=== PATIENT | male | born 1940 | race Caucasian/White ===

== ENCOUNTER 2023-07-28 17:20 | Emergency (ER) | payer MEDICARE, OTHER ==
[2023-07-28 18:10] LABS: BASOPHILS % (AUTO) 0.2 %; EOSINOPHILS % (AUTO) 0.2 %; HCT - HEMATOCRIT 43.4 % (42.0-52.0); HGB - HEMOGLOBIN 14.1 g/dL (14.0-18.0); LYMPHOCYTES # (AUTO) 1.7 10^3/uL (1.5-3.5); LYMPHOCYTES % (AUTO) 10.5 %; MEAN CORPUSCULAR HEMOGLOBIN 30.6 pg (27.0-31.0); MEAN CORPUSCULAR HGB CONC 32.5 g/dL (32.0-36.0); MEAN CORPUSCULAR VOLUME 94.1 fL (80.0-94.0); MEAN PLATELET VOLUME 10.2 fL (7.4-11.4); MONOCYTES # (AUTO) 1.5 10^3/uL (0.0-1.0); NEUTROPHILS # (AUTO) 12.8 10^3/uL (1.5-6.6); NEUTROPHILS % (AUTO) 79.4 %; PLT - PLATELET COUNT 392 10^3/uL (130-450); RED BLOOD COUNT 4.61 10^6/uL (4.70-6.10); RED CELL DISTRIBUTION WIDTH 13.5 % (12.0-15.0); WHITE BLOOD COUNT 16.2 x10^3/uL (4.8-10.8)
[2023-07-28] MEDS: IPRATROPIUM/ALBUTEROL 3 ML NEB INH STA (18:25)
[2023-07-28 18:26] LABS: ALBUMIN 3.2 g/dL (3.2-5.5); ALBUMIN/GLOBULIN RATIO 0.8 (1.0-2.2); BILIRUBIN,TOTAL 1.1 mg/dL (0.2-1.0); CALCIUM 9.7 mg/dL (8.5-10.3); CREATININE 1.1 mg/dL (0.6-1.3); POTASSIUM 4.3 mmol/L (3.5-4.5); TOTAL PROTEIN 7.4 g/dL (6.4-8.9)
--- NOTE | 2023-07-28 18:30 | XRAY Report ---
PROCEDURE: Chest 1V INDICATIONS: cough TECHNIQUE: One view of the chest was acquired. COMPARISON: None. FINDINGS: Surgical changes and devices: None. Lungs and pleura: No pleural effusions or pneumothorax. Hazy opacity in the right mid and upper lung . Mediastinum: Mediastinal contours appear normal. Heart size is normal. Bones and chest wall: No suspicious bony lesions. Overlying soft tissues appear unremarkable. IMPRESSION: Hazy opacity in the right mid and upper lung. Findings may be positional, however underlying pneumoni a, atelectasis or aspiration cannot be excluded. Repeat nonportable chest radiographs can be performe d if clinically appropriate.. Reviewed by: Bethany Escalante MD on 07/28/2023 6:28 PM PST Approved by: Bethany Escalante MD on 07/28/2023 6:28 PM PST Station ID: [id number]
--- NOTE | 2023-07-28 18:47 | ED Physician Documentation ---
History of Present Illness - Stated complaint Stated Complaint: SOA - Chief complaint Chief Complaint: Resp - History obtained from History obtained from: Patient - History of Present Illness Pain level max: 0 Pain level now: 0 - Additonal information Additional information: Patient is an 83-year-old male who presents to the emergency department with a cough for the past 2 weeks. Reportedly negative COVID at his nursing facility. Increased work of breathing today noted. He has a history of dementia and does not know any of his medical history. There are no family members with him. No other history is available at the time of arrival. Patient has never been to this facility before. Patient states that he feels fine and has no complaints. He states he wants to go home. Review of Systems Unable to obtain: Dementia Constitutional: reports: Fever GI: denies: Vomiting, Diarrhea PD PAST MEDICAL HISTORY - Present Medications Home Medications: Ambulatory Orders Medication Instructions Recorded Confirmed Albuterol Sulf [Ventolin Hfa 1 - 2 puffs INH Q4HR PRN #1 each 07/28/23 Inhaler] Amox/Clav 875/125 [Augmentin] 1 tab PO Q12H #20 tablet 07/28/23 Azithromycin [Zithromax] 250 mg PO DAILY #4 tablet 07/28/23 - Allergies Allergies/Adverse Reactions: Allergies Allergy/AdvReac Type Severity Reaction Status Date / Time No Known Drug Allergies Allergy Verified 07/28/23 18:25 - Social History Does the pt smoke?: No Smoking Status: Never smoker PD ED PE NORMAL - Vitals Vital signs reviewed: Yes - General General: No acute distress, Other (alert, oriented to person only) - HEENT HEENT: PERRL, Moist mucous membranes - Neck Neck: Supple, no meningeal sign - Cardiac Cardiac: RRR, Strong equal pulses - Respiratory Respiratory: No respiratory distress, Clear bilaterally - Abdomen Abdomen: Soft, Non distended, Other (Mild wheeze bilaterally) - Derm Derm: Warm and dry - Extremities Extremities: No edema - Neuro Neuro: Other (alert, oriented to person only) - Psych Psych: Normal mood, Normal affect Results - Vitals Vitals: Vital Signs - 24 hr 07/28/23 07/28/23 07/28/23 17:38 19:30 20:43 Temperature 38.1 C H 37.4 C Heart Rate 90 90 88 Respiratory 26 H 16 16 Rate Blood Pressure 162/104 H 121/92 H 124/88 H O2 Saturation 93 94 95 07/28/23 21:21 Temperature Heart Rate 88 Respiratory 16 Rate Blood Pressure 147/81 H O2 Saturation 94 Oxygen O2 Source Room air Oxygen Flow Rate 2 - Labs Labs: Laboratory Tests 07/28/23 07/28/23 07/28/23 18:00 18:03 18:03 WBC 16.2 H RBC 4.61 L Hgb 14.1 Hct 43.4 MCV 94.1 H MCH 30.6 MCHC 32.5 RDW 13.5 Plt Count 392 MPV 10.2 Neut # (Auto) 12.8 H Lymph # (Auto) 1.7 [place] # (Auto) 1.5 H Eos # (Auto) 0.0 Baso # (Auto) 0.0 Absolute Nucleated RBC 0.00 Nucleated RBC % 0.0 Sodium 140 Potassium 4.3 Chloride 103 Carbon Dioxide 29 Anion Gap 8.0 BUN 35 H Creatinine 1.1 Estimated GFR (MDRD) 64 L Glucose 128 H Calcium 9.7 Total Bilirubin 1.1 H AST 38 ALT 46 Alkaline Phosphatase 94 Total Protein 7.4 Albumin 3.2 Globulin 4.2 Albumin/Globulin Ratio 0.8 L Urine Color Urine Clarity Urine pH Ur Specific [place] Urine Protein Urine Glucose (UA) Urine Ketones Urine Occult Blood Urine Nitrite Urine Bilirubin Urine Urobilinogen Ur Leukocyte Esterase Urine RBC Urine WBC Ur Squamous Epith Cells Urine Bacteria Ur Microscopic Review Urine Culture Comments Nasal Adenovirus (PCR) NOT DETECTED Nasal B. parapertussis DNA (PCR) NOT DETECTED Nasal Coronavir 229E PCR NOT DETECTED Nasal Coronavir HKU1 PCR NOT DETECTED Nasal Coronavir NL63 PCR NOT DETECTED Nasal Coronavir OC43 PCR NOT DETECTED Nasal Enterovir/Rhinovir PCR DETECTED A Nasal Influenza B PCR NOT DETECTED Nasal Influenza A PCR NOT DETECTED Nasal Parainfluen 1 PCR NOT DETECTED Nasal Parainfluen 2 PCR NOT DETECTED Nasal Parainfluen 3 PCR NOT DETECTED Nasal Parainfluen 4 PCR NOT DETECTED Nasal RSV (PCR) NOT DETECTED Nasal B.pertussis DNA PCR NOT DETECTED Nasal C.pneumoniae (PCR) NOT DETECTED Matthew Human Metapneumo PCR NOT DETECTED Nasal M.pneumoniae (PCR) NOT DETECTED Nasal SARS-CoV-2 (PCR) NOT DETECTED 07/28/23 18:50 WBC RBC Hgb Hct MCV MCH MCHC RDW Plt Count MPV Neut # (Auto) Lymph # (Auto) [place] # (Auto) Eos # (Auto) Baso # (Auto) Absolute Nucleated RBC Nucleated RBC % Sodium Potassium Chloride Carbon Dioxide Anion Gap BUN Creatinine Estimated GFR (MDRD) Glucose Calcium Total Bilirubin AST ALT Alkaline Phosphatase Total Protein Albumin Globulin Albumin/Globulin Ratio Urine Color YELLOW Urine Clarity CLEAR Urine pH 5.5 Ur Specific [place] 1.020 Urine Protein 30 H Urine Glucose (UA) NEGATIVE Urine Ketones NEGATIVE Urine Occult Blood NEGATIVE Urine Nitrite NEGATIVE Urine Bilirubin NEGATIVE Urine Urobilinogen 0.2 (NORMAL) Ur Leukocyte Esterase NEGATIVE Urine RBC 0-5 Urine WBC 0-3 Ur Squamous Epith Cells RARE Squamous Urine Bacteria Rare Ur Microscopic Review INDICATED Urine Culture Comments NOT INDICATED Nasal Adenovirus (PCR) Nasal B. parapertussis DNA (PCR) Nasal Coronavir 229E PCR Nasal Coronavir HKU1 PCR Nasal Coronavir NL63 PCR Nasal Coronavir OC43 PCR Nasal Enterovir/Rhinovir PCR Nasal Influenza B PCR Nasal Influenza A PCR Nasal Parainfluen 1 PCR Nasal Parainfluen 2 PCR Nasal Parainfluen 3 PCR Nasal Parainfluen 4 PCR Nasal RSV (PCR) Nasal B.pertussis DNA PCR Nasal C.pneumoniae (PCR) Matthew Human Metapneumo PCR Nasal M.pneumoniae (PCR) Nasal SARS-CoV-2 (PCR) - Rads (name of study) cxr Relevant Findings:: Final report received, See rad report PD Medical Decision Making - ED course Complexity details: reviewed results, re-evaluated patient, considered differential, d/w patient ED course: 83-year-old male with dementia. Mild tachypnea. Tachypnea and minimal hypoxia resolved with nebulizer treatment. Will place on albuterol for home. Has a possible early pneumonia in the right upper lobe. Started on Augmentin and azithromycin here. Positive for rhinovirus/enterovirus. Negative for COVID. He is breathing at a normal rate, heart rate is normal and oxygen levels are normal. We will place him on outpatient antibiotics and have him follow-up closely with his doctor. Patient is well-appearing, nontoxic. No evidence of sepsis. This document was made in part using voice recognition software. While efforts are made to proofread this document, sound alike and grammatical errors may occur. Departure - Departure Disposition: 01 Home, Self Care Clinical Impression: Rhinovirus Pneumonia Qualifiers: Pneumonia type: due to unspecified organism Laterality: right Lung location: upper lobe of lung Qualified Code(s): J18.9 - Pneumonia, unspecified organism Condition: Good Instructions: ED Pneumonia Adult Follow-Up: your,doctor in 1 week [Other] Prescriptions: Albuterol Sulf [Ventolin Hfa Inhaler] 1 - 2 puffs INH Q4HR PRN #1 each PRN Reason: Shortness Of Air/Wheezing Amox/Clav 875/125 [Augmentin] 1 tab PO Q12H #20 tablet Azithromycin [Zithromax] 250 mg PO DAILY #4 tablet Comments: Dez may have a early right upper lobe pneumonia on chest x-ray, therefore we have started him on antibiotics tonight. He received a breathing treatment as well and have prescribed an albuterol inhaler for him. [facility] Please continue the antibiotics tomorrow. He is positive for rhinovirus as well. Please follow-up with his doctor for further care and have him return if he worsens. Forms: PCP List Discharge Date/Time: 07/28/23 21:25
[2023-07-28 19:03] LABS: BILIRUBIN,URINE NEGATIVE (NEGATIVE); GLUCOSE, URINE (UA) NEGATIVE (NEGATIVE); KETONES,URINE (UA) NEGATIVE (NEGATIVE); LEUKOCYTE ESTERASE, URINE NEGATIVE (NEGATIVE); NITRITE,URINE NEGATIVE (NEGATIVE); OCCULT BLOOD,URINE NEGATIVE (NEGATIVE); PH,URINE 5.5 PH (5.0-7.5); PROTEIN,URINE 30 mg/dL (NEGATIVE); UROBILINOGEN,URINE 0.2 (NORMAL) E.U./dL (NORMAL)
[2023-07-28 19:03] LABS: CORONAVIRUS 229E-RESP PCR NOT DETECTED; CORONAVIRUS HKU1-RESP PCR NOT DETECTED; CORONAVIRUS NL63-RESP PCR NOT DETECTED; CORONAVIRUS OC43-RESP PCR NOT DETECTED; HUMAN METAPNEUMOVIRUS NOT DETECTED; INFLUENZA A- RESP PCR PANEL NOT DETECTED; INFLUENZA B - RESP PCR PANEL NOT DETECTED; PARAINFLUENZA VIRUS 1 NOT DETECTED; PARAINFLUENZA VIRUS 2 NOT DETECTED; PARAINFLUENZA VIRUS 3 NOT DETECTED; PARAINFLUENZA VIRUS 4 NOT DETECTED; RHINOVIRUS/ENTEROVIRUS DETECTED; RSV- RESP PCR PANEL NOT DETECTED; SARS-CoV-2 -RESP PCR PANEL NOT DETECTED
[2023-07-28 19:04] LABS: CLARITY,URINE CLEAR (CLEAR)
[2023-07-28 19:04] LABS: B. PARAPERTUSSIS- RESP PCR PAN NOT DETECTED; B. PERTUSSIS- RESP PCR PANEL NOT DETECTED; C. PNEUMONIAE- RESP PCR PANEL NOT DETECTED; M. PNEUMONIAE- RESP PCR PANEL NOT DETECTED
[2023-07-28 19:15] LABS: BACTERIA,URINE Rare /HPF (None Seen); RBC,URINE 0-5 /HPF (0-5); SQUAMOUS EPITHELIAL CELL,UR RARE Squamous (<= Few); WBC,URINE 0-3 /HPF (0-3)
[2023-07-28] MEDS: AZITHROMYCIN 250 MG TABLET PO STA (19:34)
[2023-07-28] MEDS: AMOX/CLAV 875 MG/125 MG TABLET PO STA (19:34)
[2023-07-28 21:33] VITALS: BP 147/81; O2SAT 94
== END 2023-07-28 21:25 | disposition home or self-care (01) ==
LOC: ED 17:20
DX: J18.9 Pneumonia, unspecified organism (principal); B34.8 Other viral infections of unspecified site; F03.90 Unspecified dementia, unspecified severity, without behavioral disturbance, psychotic disturbance, mood disturbance, and anxiety; Z79.899 Other long term (current) drug therapy
CPT/HCPCS: 36415; 80053; 81001; 81003; 85025; 87086; 87633; 99283; 99284

== ENCOUNTER 2023-07-31 02:42 | Outpatient (CLI) | payer MEDICARE | END 2023-07-31 02:43 | disposition critical access hospital (66) | LOC: EMS 02:42 | DX: S00.01XA Abrasion of scalp, initial encounter (principal); W01.0XXA Fall on same level from slipping, tripping and stumbling without subsequent striking against object, initial encounter; Y93.01 Activity, walking, marching and hiking; Y92.099 Unspecified place in other non-institutional residence as the place of occurrence of the external cause | CPT/HCPCS: A0425; A0429 ==

== ENCOUNTER 2023-07-31 02:57 | Emergency (ER) | payer MEDICARE ==
--- NOTE | 2023-07-31 02:57 | ED Physician Documentation ---
PD HPI Fall - Stated complaint Stated Complaint: GLF, FOREHEAD CONTUSION - History obtained from History obtained from: Patient, EMS - Additional information Additional information: HPI from EMS due to patient's dementia. BIBA. Patient was walking from bedroom to bathroom when he fell, unwitnessed. Hit head on door frame. Uncertain if LOC. Per EMS, staff at facility in which patient is staying says patient's mental status is currently at baseline. T+R from this ED 07/28/23 with w/u that included CXR, CBC, ER abdominal panel, respiratory PCR panel (positive for entero/rhinovirus). RUL infiltrate on CXR and thus was prescribed augmentin and zithromax. Review of Systems Unable to obtain: Dementia PD PAST MEDICAL HISTORY - Past Medical History Past Medical History: Yes Neuro: Dementia - Present Medications Home Medications: Ambulatory Orders Medication Instructions Recorded Confirmed Albuterol Sulf [Ventolin Hfa 1 - 2 puffs INH Q4HR PRN #1 each 07/28/23 Inhaler] Amox/Clav 875/125 [Augmentin] 1 tab PO Q12H #20 tablet 07/28/23 Azithromycin [Zithromax] 250 mg PO DAILY #4 tablet 07/28/23 - Allergies Allergies/Adverse Reactions: Allergies Allergy/AdvReac Type Severity Reaction Status Date / Time No Known Drug Allergies Allergy Verified 07/28/23 18:25 PD ED PE NORMAL - Vitals Vital signs reviewed: Yes - General General: No acute distress, Well developed/nourished, Other (awake, alert, confused (oriented to self only)) - HEENT HEENT: PERRL, EOMI - Neck Neck: No bony TTP, Other (cervical collar in place (palpation of posterior cervical spine performed through opening in back of c-collar)) - Cardiac Cardiac: RRR, No murmur - Respiratory Respiratory: No respiratory distress, Clear bilaterally - Abdomen Abdomen: Soft, Non tender - Derm Derm: Normal color, Warm and dry - Extremities Extremities: No deformity, No tenderness to palpate, Normal ROM s pain - Neuro Neuro: No motor deficit, No sensory deficit Eye Opening: Spontaneous Motor: Obeys Commands Verbal: Confused GCS Score: 14 PD ED PE EXPANDED - HEENT HEENT: Other (superficial abrasion to left frontal scalp/forehead with minimal TTP, no bony step-off) Results - Vitals Vitals: Oxygen O2 Source Room air - Rads (name of study) CTH Relevant Findings:: Prelim report reviewed, See rad report CT cervical spine Relevant Findings:: Prelim report reviewed, See rad report PD Medical Decision Making - ED course Complexity details: reviewed old records, reviewed results, re-evaluated patient, considered differential ED course: No concerning findings on CTH, CT cervical spine. Given recent T+R from this ED and tests performed at that time, no further testing indicated tonight. CTH with findings possibly c/w sinusitis, and CT cervical spine includes cuts of upper chest that again demonstrate RUL infiltrate; both of these findings would be covered (regarding potential bacterial causes) by the antibiotics prescribed 07/28/23 (azithromycin and augmentin). Departure - Departure Disposition: 01 Home, Self Care Clinical Impression: Abrasion Fall Qualifiers: Encounter type: initial encounter Qualified Code(s): W19.XXXA - Unspecified fall, initial encounter Condition: Good Instructions: ED Abrasion, ED Fall Uncertain Cause Comments: There were no concerning findings on the CT scans of the head and the neck. There was evidence of sinusitis on the CT scan of the head; the antibiotics that were recently prescribed from this emergency department should cover the bact erial causes of sinusitis. On the CT scan of the neck, there were abnormal findings in the right upper lobe of the lung; this was noted on the chest x-ray on his previous visit and the antibiotics that were prescribed are for this finding (possible pneumonia). Forms: PCP List Discharge Date/Time: 07/31/23 06:18
[2023-07-31] MEDS: TETANUS/DIPHTHERIA/PERTUSSIS 0.5 ML SYRINGE IM ONE (03:59)
[2023-07-31 06:35] VITALS: BP 175/100; O2SAT 95
--- NOTE | 2023-07-31 06:36 | CT Report ---
PROCEDURE: Head WO INDICATIONS: fall, head injury TECHNIQUE: Noncontrast 4.5 mm thick angled axial sections acquired from the foramen magnum to the vertex. For r adiation dose reduction, the following was used: automated exposure control, adjustment of mA and/or kV according to patient size. COMPARISON: None. FINDINGS: Image quality: Diagnostic CSF spaces: Basal cisterns are patent. Lateral ventricles are symmetric. Ventriculomegaly, slightly o ut of proportion to degree of volume loss. Volume: Vascular calcifications. Periventricular white matter disease is commonly seen with chronic m icroangiopathy. Volume loss is present. These findings are moderate. Brain: No intracranial hemorrhage. Mcfarland-white differentiation is grossly maintained. Craniofacial structures: Opacification of the left greater than right paranasal sinuses. IMPRESSION: No acute intracranial abnormality. Chronic volume loss and ventriculomegaly. Suspected sinus disease. No significant discrepancy from the preliminary report. Reviewed by: Clayton Aguayo MD on 07/31/2023 6:35 AM PST Approved by: Clayton Aguayo MD on 07/31/2023 6:35 AM PST Station ID: [id number]
--- NOTE | 2023-07-31 06:39 | CT Report ---
PROCEDURE: Cervical Spine WO INDICATIONS: fall, head injury TECHNIQUE: Noncontrast 3 mm thick sections acquired from the skull base to the T4 level. Sagittal and coronal r eformats were then constructed. For radiation dose reduction, the following was used: automated exp osure control, adjustment of mA and/or kV according to patient size. COMPARISON: 07/31/2023 FINDINGS: Image quality: Diagnostic Bones: Moderate degenerative changes, no acute fracture or traumatic subluxation. Soft tissues: There are vascular calcifications. No apical pneumothorax. Partially seen upper lung op acities. Partially seen paranasal sinus disease. IMPRESSION: Moderate degenerative changes. No acute fracture or traumatic subluxation. Partially seen right upper lung disease. Partially seen paranasal sinus disease. Agree with preliminary report. Reviewed by: Clayton Aguayo MD on 07/31/2023 6:38 AM PST Approved by: Clayton Aguayo MD on 07/31/2023 6:38 AM PST Station ID: [id number]
== END 2023-07-31 06:18 | disposition home or self-care (01) ==
LOC: EDUNIT# → ED 02:57
DX: S00.01XA Abrasion of scalp, initial encounter (principal); S00.81XA Abrasion of other part of head, initial encounter; W18.30XA Fall on same level, unspecified, initial encounter; Y93.01 Activity, walking, marching and hiking; Y92.129 Unspecified place in nursing home as the place of occurrence of the external cause; F03.90 Unspecified dementia, unspecified severity, without behavioral disturbance, psychotic disturbance, mood disturbance, and anxiety; Z23 Encounter for immunization; Z79.899 Other long term (current) drug therapy
CPT/HCPCS: 90471; 99283; 99284

== ENCOUNTER 2023-07-31 06:20 | Outpatient (CLI) | payer MEDICARE | END 2023-07-31 23:59 | disposition home or self-care (01) | LOC: EMS 06:20 | PROVIDERS: ATTEND Emergency Medicine | DX: S00.01XA Abrasion of scalp, initial encounter (principal); W19.XXXA Unspecified fall, initial encounter; F03.90 Unspecified dementia, unspecified severity, without behavioral disturbance, psychotic disturbance, mood disturbance, and anxiety | CPT/HCPCS: A0425; A0428 ==

== ENCOUNTER 2023-09-28 08:03 | Outpatient (CLI) | payer MEDICARE | END 2023-09-28 23:59 | disposition critical access hospital (66) | LOC: EMS 08:03 | DX: S01.81XA Laceration without foreign body of other part of head, initial encounter (principal); W19.XXXA Unspecified fall, initial encounter; Y92.092 Bedroom in other non-institutional residence as the place of occurrence of the external cause | CPT/HCPCS: A0425; A0429 ==

== ENCOUNTER 2023-09-28 08:05 | Inpatient (IN) | payer MEDICARE ==
--- NOTE | 2023-09-28 08:15 | ED Physician Documentation ---
PD HPI Fall - Stated complaint Stated Complaint: GLF - History obtained from History obtained from: EMS - History of Present Illness Mechanism of injury: Unknown - Additional information Additional information: Is a very nice 83-year-old with dementia who presents from a dementia facility after a fall. This is an unwitnessed fall he walked out into the hallway and was noted to have blood on his head from a laceration. The patient thinks that he tripped but admits that he is not quite sure what happened. He does not think he lost consciousness but again he does not have much confidence in what may or may not have happened and this was an unwitnessed fall. He does not think he passed out did not have any chest pain shortness of breath or palpitations. He has not had any other injuries besides the head laceration and bleeding is controlled and he presents for evaluation. Review of Systems Unable to obtain: Dementia PD PAST MEDICAL HISTORY - Past Medical History Neuro: Dementia - Present Medications Home Medications: Ambulatory Orders Medication Instructions Recorded Confirmed Albuterol Sulf [Ventolin Hfa 1 - 2 puffs INH Q4HR PRN #1 each 07/28/23 Inhaler] - Allergies Allergies/Adverse Reactions: Allergies Allergy/AdvReac Type Severity Reaction Status Date / Time No Known Drug Allergies Allergy Verified 07/28/23 18:25 - Social History Does the pt smoke?: No Smoking Status: Never smoker PD ED PE NORMAL - HEENT HEENT: Other (He has a 2 cm laceration on his upper occiput. Well-approximated and bleeding is controlled.) - Neck Neck: No bony TTP - Cardiac Cardiac: No murmur, Other (Irregularly irregular) - Respiratory Respiratory: No respiratory distress - Abdomen Abdomen: Normal bowel sounds - Extremities Extremities: No deformity, No tenderness to palpate, Normal ROM s pain - Neuro Neuro: No motor deficit, No sensory deficit, Normal speech, Other (He is pleasantly conversant, laughing about "how my brain does not work like it should") Results - Vitals Vitals: Vital Signs - 24 hr 09/28/23 09/28/23 09/28/23 08:05 08:45 08:48 Temperature 36.4 C L Heart Rate 140 H 111 H 101 H Respiratory 18 Rate Blood Pressure 151/103 H 126/89 H 113/87 H O2 Saturation 97 09/28/23 09/28/23 09/28/23 08:54 09:00 09:30 Temperature Heart Rate 109 H 122 H 111 H Respiratory 18 18 18 Rate Blood Pressure 141/97 H 157/114 H 150/123 H O2 Saturation 96 99 98 09/28/23 11:10 Temperature Heart Rate 113 H Respiratory 16 Rate Blood Pressure 125/91 H O2 Saturation 99 Oxygen O2 Source Room air - EKG (time done) 0816 EKG releavant findings:: EKG personally interpreted by author of this note. Relevant findings are: Atrial fibrillation with rapid ventricular response, rate 124. Left anterior fascicular block. Nonspecific ST-T changes, possibly rate related. No prior ECGs available for comparison. Abnormal EKG. Atrial fibrillation is a new diagnosis for him per the senior care. - Labs Labs: Laboratory Tests 09/28/23 09/28/23 09/28/23 08:35 08:35 08:35 WBC 7.6 RBC 4.38 L Hgb 13.2 L Hct 41.5 L MCV 94.7 H MCH 30.1 MCHC 31.8 L RDW 14.1 Plt Count 284 MPV 10.0 Neut # (Auto) 3.2 Lymph # (Auto) 3.1 [place] # (Auto) 1.0 Eos # (Auto) 0.2 Baso # (Auto) 0.0 Absolute Nucleated RBC 0.00 Nucleated RBC % 0.0 Sodium 140 Potassium 4.3 Chloride 107 Carbon Dioxide 29 Anion Gap 4.0 L BUN 29 H Creatinine 1.0 Estimated GFR (MDRD) 71 L Glucose 85 Calcium 10.1 Magnesium 1.9 Total Bilirubin 1.2 H AST 13 ALT 11 Alkaline Phosphatase 75 Troponin I High Sens 18.0 Total Protein 6.3 L Albumin 3.6 Globulin 2.7 Albumin/Globulin Ratio 1.3 - Rads (name of study) ct head Relevant Findings:: Final report received (no ich) Procedures - Laceration (location) Scalp Length in cm: 3 Wound type: Linear Anesthesia: Lidocaine 1% with epi Wound preparation: Irrigated copiously NS, Wound explored Skin layer closure: Ayla (x3) Other: Patient tolerated well, No complications, Dressing applied PD Medical Decision Making - ED course Complexity details: reviewed old records, reviewed results, re-evaluated patient, d/w admissions consultant ED course: 83-year-old gentleman with significant dementia otherwise in good health present s with multiple recurrent falls from a dementia facility. He is unable to tell if he passed out or tripped or what the cause of his fall was. In the emergency department the patient has a head CT which is negative. He has his scalp laceration stapled. He is noted on EKG to be in A-fib with rapid ventricular response which could certainly be the cause of him being unsteady and having his recurrent falls.. He is given a dose of IV diltiazem and then Started on IV drip, His heart rate is now in the 90s but remains in A-fib. This is a new diagnosis for him. Will admit him to the hospitalist service for rate control and further evaluation. Obviously with his recurrent falls anticoagulation would be very risky in this gentleman with significant memory impairment. At this time electrolytes and troponin are negative. D/w Dr. Crockett from hospital medicine who will admit Clinical impression: Recurrent falls, new onset atrial fibrillation with RVR, scalp laceration, severe dementia Plan admit, rate control Departure - Departure Disposition: 66 [facility] DC/Xfer Clinical Impression: Fall Qualifiers: Encounter type: initial encounter Qualified Code(s): W19.XXXA - Unspecified fall, initial encounter Scalp laceration Qualifiers: Encounter type: initial encounter Qualified Code(s): S01.01XA - Laceration without foreign body of scalp, initial encounter Atrial fibrillation Qualifiers: Atrial fibrillation type: unspecified Qualified Code(s): I48.91 - Unspecified atrial fibrillation
[2023-09-28] MEDS: SODIUM CHLORIDE 0.9% 1,000 ML IV STA (08:35)
[2023-09-28] MEDS: diltiaZEM INJ 5 MG/ML VIAL IVP STA (08:39)
[2023-09-28 08:43] LABS: BASOPHILS % (AUTO) 0.5 %; EOSINOPHILS # (AUTO) 0.2 10^3/uL (0.0-0.7); EOSINOPHILS % (AUTO) 2.3 %; HCT - HEMATOCRIT 41.5 % (42.0-52.0); HGB - HEMOGLOBIN 13.2 g/dL (14.0-18.0); LYMPHOCYTES # (AUTO) 3.1 10^3/uL (1.5-3.5); LYMPHOCYTES % (AUTO) 41.6 %; MEAN CORPUSCULAR HEMOGLOBIN 30.1 pg (27.0-31.0); MEAN CORPUSCULAR HGB CONC 31.8 g/dL (32.0-36.0); MEAN CORPUSCULAR VOLUME 94.7 fL (80.0-94.0); MONOCYTES % (AUTO) 12.7 %; NEUTROPHILS # (AUTO) 3.2 10^3/uL (1.5-6.6); NEUTROPHILS % (AUTO) 42.8 %; PLT - PLATELET COUNT 284 10^3/uL (130-450); RED BLOOD COUNT 4.38 10^6/uL (4.70-6.10); RED CELL DISTRIBUTION WIDTH 14.1 % (12.0-15.0); WHITE BLOOD COUNT 7.6 x10^3/uL (4.8-10.8)
[2023-09-28] MEDS: LIDOCAINE 1%-EPI 1:100000 20 ML MDV SUBQ STA (08:44)
--- NOTE | 2023-09-28 08:51 | CT Report ---
PROCEDURE: Head WO INDICATIONS: fall, lac TECHNIQUE: Noncontrast 4.5 mm thick angled axial sections acquired from the foramen magnum to the vertex. For r adiation dose reduction, the following was used: automated exposure control, adjustment of mA and/or kV according to patient size. COMPARISON: 07/31/2023 FINDINGS: Image quality: Excellent. CSF spaces: Basal cisterns are patent. No extra-axial fluid collections. Ventricles are normal in size and shape. Brain: No midline shift. No intracranial masses or hemorrhage. Mcfarland-white matter interface is norm al. 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 Age-related volume loss . Skull and face: Calvarium and visualized facial bones are intact, without suspicious lesions. Sinuses: Visualized sinuses and mastoids are clear. IMPRESSION: No acute intracranial pathology. 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 Age-related volume loss. Resolved sinus disease. Reviewed by: Angel Moya MD on 09/28/2023 8:49 AM PDT Approved by: Angel Moya MD on 09/28/2023 8:49 AM PDT Station ID: [id number]
[2023-09-28 09:14] LABS: ALBUMIN 3.6 g/dL (3.2-5.5); ALBUMIN/GLOBULIN RATIO 1.3 (1.0-2.2); BILIRUBIN,TOTAL 1.2 mg/dL (0.2-1.0); CALCIUM 10.1 mg/dL (8.5-10.3); MAGNESIUM 1.9 mg/dL (1.7-2.3); POTASSIUM 4.3 mmol/L (3.5-4.5); TOTAL PROTEIN 6.3 g/dL (6.4-8.9)
[2023-09-28] MEDS: diltiaZEM INJ 125 MG in DEXTROSE 5% 100 ML IV STA (11:09)
[2023-09-28] MEDS ORDERED: ONDANSETRON 4 MG/2 ML VIAL IVP PRN (11:24)
[2023-09-28] MEDS ORDERED: ONDANSETRON ODT 4 MG TABLET TL PRN (11:24)
[2023-09-28] MEDS ORDERED: ACETAMINOPHEN 325 MG TABLET PO PRN (11:24)
[2023-09-28] MEDS ORDERED: SODIUM CHLORIDE FLUSH 0.9% 10 ML SYRINGE IVP PRN (11:24)
--- NOTE | 2023-09-28 11:29 | HISTORY & PHYSICAL EXAMINATION ---
Chief Complaint - Chief Complaint Chief Complaint: Fall with head injury History of Present Illness - Admitted From Admitted From:: ED - History Obtained From Records Reviewed: Yes History obtained from: Patient Exam Limitations: Dementia - History of Present Illness HPI Comment/Other: Patient is an 83-year-old male with a past medical history of dementia who presented to the ED after sustaining a fall at his memory care unit. Patient sustained injuries to his head requiring cristine. A CT head was performed which did not show any evidence of intracranial hemorrhage. He was however noted to be in atrial fibrillation with rapid ventricular rate on EKG. Patient was started on diltiazem drip which dropped his rate into the 90s. Of note, patient appears to have been having recurrent falls. He was not started on any anticoagulation for this reason. His initial troponin was negative at 18 and repeat increased to 22. Patient was not having any chest pain nor palpitations. He denied any shortness of breath. Patient was admitted to the ICU for rate control of his new onset atrial fibrillation. History - Past Medical History Neuro: reports: Dementia Other Past Medical History: Poor historian. From [facility] staff said no hx besides dementia. Meds/Allgy - Home Medications Home Medications: Ambulatory Orders Medication Instructions Recorded Confirmed Albuterol Sulf [Ventolin Hfa 1 - 2 puffs INH Q4HR PRN #1 each 07/28/23 Inhaler] - Allergies Allergies/Adverse Reactions: Allergies Allergy/AdvReac Type Severity Reaction Status Date / Time No Known Drug Allergies Allergy Verified 07/28/23 18:25 Review of Systems - Constitutional Constitutional: denies: Fatigue, Fever, Chills, Weakness - Cardiovascular Cariovascular: reports: Irregular heart rate. denies: Palpitations, Chest pain, Edema, Lightheadedness, Syncope, Exertional dyspnea, Orthopnea - Respiratory Respiratory: denies: Cough, Sputum production, Wheezing, Orthopnea - Neurological Neurological: denies: Focal weakness - All Other Systems All Other Systems: reports: Reviewed and negative Prior Level of Functionality: Resides in a memory care unit due to his dementia. Exam - Vital Signs Reviewed Vital Signs: Yes Vital Signs: Vital Signs x48h Temp Pulse Resp BP Pulse Ox 09/28/23 11:10 113 H 16 125/91 H 99 09/28/23 09:30 111 H 18 150/123 H 98 09/28/23 09:00 122 H 18 157/114 H 99 09/28/23 08:54 109 H 18 141/97 H 96 09/28/23 08:48 101 H 113/87 H 09/28/23 08:45 111 H 126/89 H 09/28/23 08:05 36.4 C L 140 H 18 151/103 H 97 - Physical Exam General Appearance: positive: No acute distress, Alert Respiratory: positive: Chest non-tender, No respiratory distress, Breath sounds nml Cardiovascular: positive: Tachycardia Abdomen: positive: Non-tender Extremities: positive: Non-tender, No pedal edema Neurologic/Psychiatric: positive: CN's nml (2-12), Motor nml Conclusion/Plan - Problem List (1) Atrial fibrillation Conclusion/Plan: --Admitted to the ICU on a diltiazem drip. Heart rate is much better controlled but he remains in atrial fibrillation. Anticipate he may be able to transition to an oral rate control agent in the morning. --Will hold off on starting any anticoagulation right now as patient has been having recurrent falls in his memory care unit. I believe the risks outweigh the benefits. --TSH in a.m. --TTE pending. Qualifiers: Atrial fibrillation type: unspecified Qualified Code(s): I48.91 - Unspecified atrial fibrillation (2) Dementia Conclusion/Plan: --Resides in a memory care unit. Patient is a full code per his POLST. (3) Fall Conclusion/Plan: --Unclear as to etiology of fall. May have been triggered by his atrial fibrillation. He currently has a laceration on his scalp that is stapled. No intracranial hemorrhage on CT. Will hold off on starting any anticoagulation due to his recurrent falls. --PT/OT. Qualifiers: Encounter type: initial encounter Qualified Code(s): W19.XXXA - Unspecified fall, initial encounter (4) Scalp laceration Conclusion/Plan: --As above. Cristine in place. No further bleeding. Qualifiers: Encounter type: initial encounter Qualified Code(s): S01.01XA - Laceration without foreign body of scalp, initial encounter - Lab Results Lab results reviewed: Yes Fish Bones: 09/28/23 08:35 09/28/23 08:35
[2023-09-28] MEDS ORDERED: diltiaZEM INJ 125 MG in DEXTROSE 5% 100 ML IV SCH (12:00)
--- NOTE | 2023-09-28 15:37 | PHARMACY PROGRESS NOTE ---
- Best Possible Medication History Admit Date and Time: 09/28/23 1124 Processed by: Pharmacy Medications reviewed in ED?: No Medication History completed: Yes Patient Interview: Pt unable to participate Secondary Source(s): Caregiver (CONFIRMED WITH [facility]) As the person ultimately responsible for medication therapy, providers are able to order a medication from an existing home medication list in [facility] via the "Reconcile Routine" prior to Confirmation of that medication by developer support engineer. Such practice is discouraged except when the physician, in their clinical judgment, deems that a medical need exists for a medication without regard to previous use.
[2023-09-28] MEDS: SODIUM CHLORIDE FLUSH 0.9% 10 ML SYRINGE IVP SCH (16:17)
[2023-09-28] MEDS ORDERED: OLANZapine 10 MG VIAL IM PRN (17:21)
[2023-09-29 04:43] LABS: BASOPHILS % (AUTO) 0.5 %; CALCIUM, IONIZED 1.1 mmol/L (1.15-1.33); EOSINOPHILS # (AUTO) 0.1 10^3/uL (0.0-0.7); EOSINOPHILS % (AUTO) 1.7 %; HCT - HEMATOCRIT 41.5 % (42.0-52.0); HGB - HEMOGLOBIN 13.5 g/dL (14.0-18.0); LYMPHOCYTES # (AUTO) 3.5 10^3/uL (1.5-3.5); MEAN CORPUSCULAR HEMOGLOBIN 30.8 pg (27.0-31.0); MEAN CORPUSCULAR HGB CONC 32.5 g/dL (32.0-36.0); MEAN CORPUSCULAR VOLUME 94.5 fL (80.0-94.0); MEAN PLATELET VOLUME 9.9 fL (7.4-11.4); MONOCYTES # (AUTO) 1.1 10^3/uL (0.0-1.0); MONOCYTES % (AUTO) 12.7 %; NEUTROPHILS # (AUTO) 3.6 10^3/uL (1.5-6.6); PLT - PLATELET COUNT 267 10^3/uL (130-450); RED BLOOD COUNT 4.39 10^6/uL (4.70-6.10); RED CELL DISTRIBUTION WIDTH 14.1 % (12.0-15.0); VBG PH 7.495 (7.31-7.41); WHITE BLOOD COUNT 8.3 x10^3/uL (4.8-10.8)
[2023-09-29 05:00] LABS: MAGNESIUM 1.8 mg/dL (1.7-2.3)
[2023-09-29 05:38] LABS: CALCIUM 9.8 mg/dL (8.5-10.3); CREATININE 0.9 mg/dL (0.6-1.3); POTASSIUM 3.9 mmol/L (3.5-4.5)
[2023-09-29] MEDS: CALCIUM CARBONATE CHEW 500 MG TABLET PO SCH (07:36)
[2023-09-29] MEDS: MAGNESIUM OXIDE 400 MG TABLET PO ONE (07:36)
[2023-09-29] MEDS: POTASSIUM CHLORIDE 20 MEQ TABLET PO ONE (08:22)
[2023-09-29] MEDS: polyethylene glycoL 3350 17 GM PACKET PO SCH (08:22)
[2023-09-29] MEDS: ENOXAPARIN 40 MG/0.4 ML SYRINGE SUBQ SCH (08:23)
[2023-09-29] MEDS: diltiaZEM CD 180 MG CAPSULE PO SCH (08:24)
--- NOTE | 2023-09-29 09:10 | PROVIDER PROGRESS NOTE ---
Assessment/Plan - Problem List (1) Atrial fibrillation Qualifiers: Atrial fibrillation type: unspecified Qualified Code(s): I48.91 - Unspecified atrial fibrillation Assessment/Plan: (1) Atrial fibrillation Conclusion/Plan: --Will switch to PO diltiazem CD 180 mg and wean him off the drip. He remains in rate controlled Afib. --Will hold off on starting any anticoagulation right now as patient has been having recurrent falls in his memory care unit. I believe the risks outweigh the benefits. --TTE showing preserved LVEF. Qualifiers: Atrial fibrillation type: unspecified Qualified Code(s): I48.91 - Unspecified atrial fibrillation (2) Dementia Conclusion/Plan: --Resides in a memory care unit. Patient is a full code per his POLST. (3) Fall Conclusion/Plan: --Unclear as to etiology of fall. May have been triggered by his atrial fibrillation. He currently has a laceration on his scalp that is stapled. No intracranial hemorrhage on CT. Will hold off on starting any anticoagulation due to his recurrent falls. --PT/OT. Qualifiers: Encounter type: initial encounter Qualified Code(s): W19.XXXA - Unspecified fall, initial encounter (4) Scalp laceration Conclusion/Plan: --As above. Ayla in place. No further bleeding. Qualifiers: Encounter type: initial encounter Qualified Code(s): S01.01XA - Laceration without foreign body of scalp, initial encounter (3) Fall Qualifiers: Encounter type: initial encounter Qualified Code(s): W19.XXXA - Unspecified fall, initial encounter (4) Scalp laceration Qualifiers: Encounter type: initial encounter Qualified Code(s): S01.01XA - Laceration without foreign body of scalp, initial encounter - Current Meds Current Meds: Current Medications Generic Name Dose Route Start Last Admin Trade Name Freq PRN Reason Stop Dose Admin Calcium Carbonate/Glycine 1,250 mg 09/29/23 07:00 09/29/23 07:36 Calcium Carbonate Chew 500 Mg Tablet PO 09/29/23 11:01 1,250 mg Q4H [place] Administration Protocol Diltiazem HCl 180 mg 09/29/23 09:00 09/29/23 08:24 Diltiazem Cd 180 Mg Capsule PO 180 mg DAILY [place] Administration Enoxaparin Sodium 40 mg 09/29/23 09:00 09/29/23 08:23 Enoxaparin 40 Mg/0.4 Ml Syringe SUBQ 40 mg DAILY [place] Administration Diltiazem HCl 125 mg/ Dextrose 125 mls @ 5 mls/hr 09/28/23 10:23 09/29/23 04:13 IV 09/29/23 11:22 5 mg/hr TITR STA 5 mls/hr Administration Protocol 5 MG/HR Polyethylene Glycol 17 gm 09/29/23 09:00 09/29/23 08:22 Polyethylene Glycol 3350 17 Gm Packet PO 17 gm DAILY [place] Administration Sodium Chloride 10 ml 09/28/23 17:00 09/29/23 07:37 Sodium Chloride Flush 0.9% 10 Ml Syringe IVP 10 ml 0100,0900,1700 [place] Administration - Lab Result Fish Bone Diagrams: 09/29/23 04:13 09/29/23 04:13 - Additional Planning My Orders: My Active Orders 09/28/23 Lunch Cardiac Diet [DIET] 09/28/23 11:24 Activity Orders (ICU) [RC] Q2HR Daily Weight [RC] 0600 Home CPAP/BiPAP/NPPV [RC] .ONCE IO [RC] Q1HR Initiate Bowel Care Protocol [RC] QSHIFT Initiate Bronchodialator Geraldine [RC] .PROTOCOL Initiate ICU Electrolyte Prot. [RC] .protocol Initiate Line Care Protocol [RC] .protocol Initiate Personal Care Protoco [RC] .protocol Initiate Progressive Mobility Protocol [RC] 0800,2000 Initiate Secretion Clearance P [RC] .PROTOCOL Acetaminophen [Tylenol] 650 mg PO Q4HR PRN HYDROcod/ACETAM 5/325 [[place] 5/325] 1 tab PO Q4HR PRN Ondansetron Inj [Zofran Inj] 4 mg IVP Q6HR PRN Ondansetron Odt [Zofran Odt] 4 mg TL Q6HR PRN Sodium Chloride Flush 0.9% [Normal Saline Flush 0.9%] 10 ml IVP PRN PRN Code Status [OTHERS] Routine Condition of Patient [OTHERS] Routine DVT Prophylaxis [OTHERS] Routine 09/28/23 11:25 Oxygen Therapy [RC] .PRN 09/28/23 11:27 Evaluate and Treat OT [OT] Routine Evaluate and Treat PT [PT] Routine 09/28/23 17:00 Sodium Chloride Flush 0.9% [Normal Saline Flush 0.9%] 10 ml IVP 0100,0900,1700 09/28/23 17:21 OLANZapine IM [ZyPREXA IM] 5 mg IM Q6H PRN 09/29/23 07:00 Calcium Carbonate [Tums] 1,250 mg PO Q4H 09/29/23 09:00 Enoxaparin [Lovenox] 40 mg SUBQ DAILY diltiaZEM CD [Cardizem Cd] 180 mg PO DAILY polyethylene glycoL 3350 [Miralax] 17 gm PO DAILY Subjective - Subjective Patient Reports: Feeling Better, Resting Comfortably, No Complaints Objective Vital Signs: Vital Signs - 24 hr 09/28/23 09/28/23 09/28/23 09:30 11:10 11:24 Temperature Heart Rate 111 H 113 H 115 H Heart Rate [ Activity] Heart Rate [ Monitoring electrodes] Heart Rate [ Supine] Respiratory 18 16 Rate Blood Pressure 150/123 H 125/91 H 121/100 H Blood Pressure [Activity] Blood Pressure [Right Brachial artery] Blood Pressure [Supine] O2 Saturation 98 99 09/28/23 09/28/23 09/28/23 11:27 11:30 11:38 Temperature Heart Rate 117 H 90 82 Heart Rate [ Activity] Heart Rate [ Monitoring electrodes] Heart Rate [ Supine] Respiratory 16 Rate Blood Pressure 143/97 H 144/89 H 124/90 H Blood Pressure [Activity] Blood Pressure [Right Brachial artery] Blood Pressure [Supine] O2 Saturation 99 09/28/23 09/28/23 09/28/23 12:14 12:15 13:00 Temperature 36.8 C Heart Rate 95 Heart Rate [ Activity] Heart Rate [ 103 H 82 Monitoring electrodes] Heart Rate [ Supine] Respiratory 18 20 18 Rate Blood Pressure 137/94 H Blood Pressure [Activity] Blood Pressure 144/93 H 129/68 [Right Brachial artery] Blood Pressure [Supine] O2 Saturation 99 98 97 09/28/23 09/28/23 09/28/23 13:30 14:00 15:00 Temperature Heart Rate Heart Rate [ 88 Activity] Heart Rate [ 98 69 Monitoring electrodes] Heart Rate [ 95 Supine] Respiratory 25 H 19 Rate Blood Pressure Blood Pressure 136/94 H [Activity] Blood Pressure 136/94 H 136/94 H [Right Brachial artery] Blood Pressure 132/83 H [Supine] O2 Saturation 92 96 09/28/23 09/28/23 09/28/23 16:00 17:00 18:00 Temperature 36.6 C Heart Rate Heart Rate [ Activity] Heart Rate [ 82 91 74 Monitoring electrodes] Heart Rate [ Supine] Respiratory 18 15 18 Rate Blood Pressure Blood Pressure [Activity] Blood Pressure 118/69 145/88 H 121/78 [Right Brachial artery] Blood Pressure [Supine] O2 Saturation 95 98 97 09/28/23 09/28/23 09/28/23 19:00 20:00 21:00 Temperature 36.8 C Heart Rate Heart Rate [ Activity] Heart Rate [ 65 70 76 Monitoring electrodes] Heart Rate [ Supine] Respiratory 15 22 20 Rate Blood Pressure Blood Pressure [Activity] Blood Pressure 90/62 128/87 H 121/79 [Right Brachial artery] Blood Pressure [Supine] O2 Saturation 97 98 94 09/28/23 09/28/23 09/29/23 22:00 23:00 00:00 Temperature Heart Rate Heart Rate [ Activity] Heart Rate [ 83 90 75 Monitoring electrodes] Heart Rate [ Supine] Respiratory 18 18 22 Rate Blood Pressure Blood Pressure [Activity] Blood Pressure 141/97 H 115/80 106/55 L [Right Brachial artery] Blood Pressure [Supine] O2 Saturation 97 95 96 09/29/23 09/29/23 09/29/23 01:00 01:53 03:00 Temperature Heart Rate Heart Rate [ Activity] Heart Rate [ 80 94 85 Monitoring electrodes] Heart Rate [ Supine] Respiratory 24 23 22 Rate Blood Pressure Blood Pressure [Activity] Blood Pressure 120/73 120/79 118/69 [Right Brachial artery] Blood Pressure [Supine] O2 Saturation 97 96 95 09/29/23 09/29/23 09/29/23 04:00 05:00 06:00 Temperature 37.0 C Heart Rate Heart Rate [ Activity] Heart Rate [ 86 76 70 Monitoring electrodes] Heart Rate [ Supine] Respiratory 28 H 20 20 Rate Blood Pressure Blood Pressure [Activity] Blood Pressure 132/79 H 140/95 H 102/69 [Right Brachial artery] Blood Pressure [Supine] O2 Saturation 92 96 96 09/29/23 09/29/23 09/29/23 06:54 08:00 09:00 Temperature 36.7 C Heart Rate Heart Rate [ Activity] Heart Rate [ 74 77 98 Monitoring electrodes] Heart Rate [ Supine] Respiratory 17 22 17 Rate Blood Pressure Blood Pressure [Activity] Blood Pressure 116/81 H 114/71 119/86 H [Right Brachial artery] Blood Pressure [Supine] O2 Saturation 95 96 98 Oxygen O2 Source Room air I&O (Last 24 Hrs): Intake and Output Totals x24h 09/27/23 09/28/23 09/29/23 23:59 23:59 23:59 Intake Total 388.500 44.833 Output Total 875 475 Balance -486.500 -430.167 General: Alert Cardiovascular: Regular rate, Normal S1, Normal S2 Respiratory: No respiratory distress, Breath sounds nml Extremities: No edema - Results Results: Laboratory Results WBC 8.3 x10^3/uL (4.8-10.8) 09/29/23 04:13 RBC 4.39 10^6/uL (4.70-6.10) L 09/29/23 04:13 Hgb 13.5 g/dL (14.0-18.0) L 09/29/23 04:13 Hct 41.5 % (42.0-52.0) L 09/29/23 04:13 MCV 94.5 fL (80.0-94.0) H 09/29/23 04:13 MCH 30.8 pg (27.0-31.0) 09/29/23 04:13 MCHC 32.5 g/dL (32.0-36.0) 09/29/23 04:13 RDW 14.1 % (12.0-15.0) 09/29/23 04:13 Plt Count 267 10^3/uL (130-450) 09/29/23 04:13 MPV 9.9 fL (7.4-11.4) 09/29/23 04:13 Neut # (Auto) 3.6 10^3/uL (1.5-6.6) 09/29/23 04:13 Lymph # (Auto) 3.5 10^3/uL (1.5-3.5) 09/29/23 04:13 [place] # (Auto) 1.1 10^3/uL (0.0-1.0) H 09/29/23 04:13 Eos # (Auto) 0.1 10^3/uL (0.0-0.7) 09/29/23 04:13 Baso # (Auto) 0.0 10^3/uL (0.0-0.1) 09/29/23 04:13 Absolute Nucleated RBC 0.00 x10^3/uL 09/29/23 04:13 Nucleated RBC % 0.0 /100WBC 09/29/23 04:13 VBG pH 7.495 (7.31-7.41) H 09/29/23 04:13 Ionized Calcium 1.10 mmol/L (1.15-1.33) L 09/29/23 04:13 Sodium 138 mmol/L (135-145) 09/29/23 04:13 Potassium 3.9 mmol/L (3.5-4.5) 09/29/23 04:13 Chloride 107 mmol/L (101-111) 09/29/23 04:13 Carbon Dioxide 26 mmol/L (21-32) 09/29/23 04:13 Anion Gap 5.0 (6-13) L 09/29/23 04:13 BUN 20 mg/dL (6-20) 09/29/23 04:13 Creatinine 0.9 mg/dL (0.6-1.3) 09/29/23 04:13 Estimated GFR (MDRD) 80 (>89) L 09/29/23 04:13 Glucose 90 mg/dL (74-104) 09/29/23 04:13 Calcium 9.8 mg/dL (8.5-10.3) 09/29/23 04:13 Phosphorus 3.0 mg/dL (2.5-5.0) 09/29/23 04:13 Magnesium 1.8 mg/dL (1.7-2.3) 09/29/23 04:13 Total Bilirubin 1.2 mg/dL (0.2-1.0) H 09/28/23 08:35 AST 13 IU/L (10-42) 09/28/23 08:35 ALT 11 IU/L (10-60) 09/28/23 08:35 Alkaline Phosphatase 75 IU/L (42-121) 09/28/23 08:35 Troponin I High Sens 22.2 ng/L (2.3-19.7) H* 09/28/23 11:50 Total Protein 6.3 g/dL (6.4-8.9) L 09/28/23 08:35 Albumin 3.6 g/dL (3.2-5.5) 09/28/23 08:35 Globulin 2.7 g/dL (2.1-4.2) 09/28/23 08:35 Albumin/Globulin Ratio 1.3 (1.0-2.2) 09/28/23 08:35 TSH 1.12 uIU/mL (0.34-5.60) 09/29/23 04:13 Nasal Screen MRSA (PCR) NEGATIVE (NEGATIVE) 09/28/23 12:25
[2023-09-29 11:12] LABS: BILIRUBIN,URINE NEGATIVE (NEGATIVE); GLUCOSE, URINE (UA) NEGATIVE (NEGATIVE); KETONES,URINE (UA) NEGATIVE (NEGATIVE); LEUKOCYTE ESTERASE, URINE NEGATIVE (NEGATIVE); NITRITE,URINE NEGATIVE (NEGATIVE); OCCULT BLOOD,URINE NEGATIVE (NEGATIVE); PROTEIN,URINE NEGATIVE (NEGATIVE); UROBILINOGEN,URINE 0.2 (NORMAL) E.U./dL (NORMAL)
[2023-09-29 11:14] LABS: CLARITY,URINE CLEAR (CLEAR)
[2023-09-29 11:28] LABS: BACTERIA,URINE Few /HPF (None Seen); RBC,URINE 0-5 /HPF (0-5); SQUAMOUS EPITHELIAL CELL,UR FEW Squamous (<= Few); WBC,URINE 0-3 /HPF (0-3)
[2023-09-29 15:22] LABS: CALCIUM, IONIZED 1.21 mmol/L (1.15-1.33); VBG PH 7.377 (7.31-7.41)
[2023-09-29 15:28] LABS: POTASSIUM 4.4 mmol/L (3.5-4.5)
[2023-09-29] MEDS: MULTIVITAMIN W/MINERALS TABLET PO SCH (16:15)
[2023-09-30] MEDS: HYDROcod/ACETAM 5/325 MG TABLET PO PRN (00:06)
[2023-09-30 04:57] LABS: CALCIUM, IONIZED 1.19 mmol/L (1.15-1.33); VBG PH 7.456 (7.31-7.41)
[2023-09-30 05:09] LABS: MAGNESIUM 1.9 mg/dL (1.7-2.3); PHOSPHORUS 3.2 mg/dL (2.5-5.0); POTASSIUM 4.4 mmol/L (3.5-4.5)
[2023-09-30] MEDS: diltiaZEM INJ 5 MG/ML VIAL IVP ONE (06:20)
--- NOTE | 2023-09-30 11:07 | Discharge Plan ---
"Discharge Plan for SNF / [facility] - Discharge Plan And Transition Orders Problem Reviewed?: Yes Disposition: 06 Home Health Service Allergies and Adverse Reactions: Allergies Allergy/AdvReac Type Severity Reaction Status Date / Time No Known Drug Allergies Allergy Verified 07/28/23 18:25 - SNF / CARE HOME Transition Orders Medicare Certification Statement: I certify that [facility] is medically necessary on a continuing basis for any of the conditions for which she/he is receiving care during hospitalization. Notify PCP of admission and forward orders to primary provider for signature. Weight on admission and: Daily Call PCP immediately if weight increases by: 5 kg Other Notification Orders: Call PCP immediately if patient develops dyspnea, chest pain/tightness or edema. House Bowel Program: Yes Additional Bowel Program Orders: If no BM after 2 days, nurse may give M.O.M. 30ml PO PRN and/or ducolax Supp 1 OK and/or ROMEO 250mg P.O., and/or senna 1-2 tabs PO. On day 3 nurse may give repeat above order until residents constipation is resolved. Annual Influenza Vaccine (between Feb 26 and September 25): Yes Two-step PPD per [facility] [id number] or approved exception documents: Yes Treatments & Other Orders: Resume home health. Daily vitals. Oxygen Orders: Maintain oxygen greater than 90%. Medication Orders: PLEASE REFER TO THE DISCHARGE MEDICATION LIST. Insulin Orders?: No - Medications New Prescriptions: diltiaZEM CD [Cardizem Cd] 180 mg PO DAILY #30 cap - Diet Type: Geriatric Texture: Regular Liquids: Thin May have monthly special meal: Yes - Therapies | Activity Therapy: Evaluation | Treat if indicated: PT, OT Activity: Activity as Tolerated Follow Up: Follow up with PCP in 3-5 days. Will need outpatient cardiology referral for new onset atrial fibrillation."
--- NOTE | 2023-09-30 11:10 | DISCHARGE SUMMARY ---
Discharge Summary Admit Date: 09/28/23 Discharge Date: 09/30/23 Discharging Provider: Jeremiah Crockett Code Status: Attempt Resuscitation Condition at Discharge: Good Discharge Disposition: 06 Home Health Service - DIAGNOSES Discharge Diagnoses with Status of Each Condition: (1) Atrial fibrillation Conclusion/Plan: --Will switch to PO diltiazem CD 180 mg. --Will hold off on starting any anticoagulation right now as patient has been having recurrent falls in his memory care unit. I believe the risks outweigh the benefits. --TTE showing preserved LVEF. Qualifiers: Atrial fibrillation type: unspecified Qualified Code(s): I48.91 - Unspecified atrial fibrillation (2) Dementia Conclusion/Plan: --Resides in a memory care unit. Patient is a full code per his POLST. (3) Fall Conclusion/Plan: --Unclear as to etiology of fall. May have been triggered by his atrial fibrillation. He currently has a laceration on his scalp that is stapled. No intracranial hemorrhage on CT. Will hold off on starting any anticoagulation due to his recurrent falls. --PT/OT. Qualifiers: Encounter type: initial encounter Qualified Code(s): W19.XXXA - Unspecified fall, initial encounter (4) Scalp laceration Conclusion/Plan: --As above. Cristine in place. No further bleeding. Qualifiers: Encounter type: initial encounter Qualified Code(s): S01.01XA - Laceration without foreign body of scalp, initial encounter - HPI History of Present Illness: Patient is an 83-year-old male with a past medical history of dementia who presented to the ED after sustaining a fall at his memory care unit. Patient sustained injuries to his head requiring cristine. A CT head was performed which did not show any evidence of intracranial hemorrhage. He was however noted to be in atrial fibrillation with rapid ventricular rate on EKG. Patient was started on diltiazem drip which dropped his rate into the 90s. Of note, patient appears to have been having recurrent falls. He was not started on any anticoagulation for this reason. His initial troponin was negative at 18 and repeat increased to 22. Patient was not having any chest pain nor palpitations. He denied any shortness of breath. Patient was admitted to the ICU for rate control of his new onset atrial fibrillation. - HOSPITAL COURSE Hospital Course: Patient is an 83-year-old male who presented to the ED after sustaining a fall at his memory care unit. He was noted to be in atrial fibrillation with rapid ventricular rate and was started on a diltiazem drip. He responded well to diltiazem drip was eventually weaned onto oral diltiazem 180 milligrams daily. Patient remained in atrial fibrillation however his rate was controlled. No anticoagulation was started due to his high fall risk. He was subsequently disc harged back to his memory care unit. Patient would benefit from an outpatient follow-up with cardiology. His TTE did show a preserved ejection fraction. Patient also has cristine in his head due to a laceration from his fall. These can be removed on 10/06. - ALLERGIES Allergies/Adverse Reactions: Allergies Allergy/AdvReac Type Severity Reaction Status Date / Time No Known Drug Allergies Allergy Verified 07/28/23 18:25 - MEDICATIONS Home Medications: Ambulatory Orders Medication Instructions Recorded Confirmed Acetaminophen [Tylenol] 325 mg PO BID 09/28/23 09/28/23 Hydrocortisone 1% Cream 1 applic TOP BID PRN 09/28/23 09/28/23 [Hydrocortisone] diltiaZEM CD [Cardizem Cd] 180 mg PO DAILY #30 cap 09/30/23 - PHYSICAL EXAM AT DISCHARGE General Appearance: positive: No acute distress, Alert Respiratory: positive: No respiratory distress, Breath sounds nml Cardiovascular: positive: No murmur, No gallop Abdomen: positive: Non-tender, No distention Extremities: positive: No pedal edema - LABS Result Diagrams: 09/29/23 04:13 09/30/23 04:28
[2023-09-30 13:11] VITALS: BP 110/82; O2SAT 96
== END 2023-09-30 13:13 | disposition home health service (06) | DRG 310 ==
LOC: EDUNIT# → ED 08:05 → ICU 11:24
PROVIDERS: ADMIT Family Medicine; ATTEND Family Medicine
DX: I48.91 Unspecified atrial fibrillation (principal); S01.01XA Laceration without foreign body of scalp, initial encounter; W19.XXXA Unspecified fall, initial encounter; Z91.81 History of falling; Y92.128 Other place in nursing home as the place of occurrence of the external cause; I44.4 Left anterior fascicular block; F03.C0 Unspecified dementia, severe, without behavioral disturbance, psychotic disturbance, mood disturbance, and anxiety; Y92.129 Unspecified place in nursing home as the place of occurrence of the external cause; F03.90 Unspecified dementia, unspecified severity, without behavioral disturbance, psychotic disturbance, mood disturbance, and anxiety
CPT/HCPCS: 12002; 36415; 70450; 80048; 80053; 81001; 82330; 83735; 84100; 84132; 84443; 84484; 85025; 87150; 93005; 93307; 96374; 97162; 97166; 99285; A9270; J1650; 87086

== ENCOUNTER 2023-09-30 13:17 | Outpatient (CLI) | payer MEDICARE | END 2023-09-30 23:59 | disposition home or self-care (01) | LOC: EMS 13:17 | PROVIDERS: ATTEND Family Medicine | DX: F03.90 Unspecified dementia, unspecified severity, without behavioral disturbance, psychotic disturbance, mood disturbance, and anxiety (principal); I48.91 Unspecified atrial fibrillation; R41.0 Disorientation, unspecified | CPT/HCPCS: A0425; A0428 ==

== ENCOUNTER 2024-01-22 09:46 | Outpatient (CLI) | payer MEDICARE | END 2024-01-22 23:59 | disposition critical access hospital (66) | LOC: EMS 09:46 | DX: S01.01XA Laceration without foreign body of scalp, initial encounter (principal); X58.XXXA Exposure to other specified factors, initial encounter; Y92.099 Unspecified place in other non-institutional residence as the place of occurrence of the external cause | CPT/HCPCS: A0425; A0429 ==

== ENCOUNTER 2024-01-22 10:06 | Emergency (ER) | payer MEDICARE ==
--- NOTE | 2024-01-22 10:12 | ED Physician Documentation ---
PD HPI HEAD INJURY - Stated complaint Stated Complaint: HEAD LAC - History obtained from History obtained from: Patient, EMS - Additional information Additional information: 83-year-old gentleman [facility], he does have a history of dementia and he is up-to-date on tetanus. He has a laceration to the scalp on the right. The mechanism of injury is on recollected and unknown. No other noted injuries or complaints. PD PAST MEDICAL HISTORY - Past Medical History Cardiovascular: Atrial fibrillation Neuro: Dementia - Present Medications Home Medications: Ambulatory Orders Medication Instructions Recorded Confirmed Acetaminophen [Tylenol] 325 mg PO BID 09/28/23 01/22/24 Hydrocortisone 1% Cream 1 applic TOP BID PRN 09/28/23 01/22/24 [Hydrocortisone] diltiaZEM CD [Cardizem Cd] 180 mg PO DAILY #30 cap 09/30/23 01/22/24 Albuterol Sulf [Ventolin Hfa 2 puffs INH Q4HR PRN 01/22/24 01/22/24 Inhaler] - Allergies Allergies/Adverse Reactions: Allergies Allergy/AdvReac Type Severity Reaction Status Date / Time No Known Drug Allergies Allergy Verified 01/22/24 10:09 - Social History Does the pt smoke?: No Smoking Status: Unknown if ever smoked - Immunizations Immunizations are current?: Yes PD ED PE NORMAL - Vitals Vital signs reviewed: Yes - General General: Other (He is alert and oriented to person and place but not time or events) - HEENT HEENT: PERRL, EOMI, Other (2 cm shallow laceration to the right posterior superior scalp; There is a lesion also on his right nose that I worry could be a squamous cell carcinoma. 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 Relevant Findings:: Final report received, EMP independent interpretation of test Cervical spine CT showing T1 and T2 wedge compression fractures of unclear acuity Relevant Findings:: Final report received, EMP independent interpretation of test Procedures - Laceration (location) R scalp Length in cm: 2 Wound type: Linear, Superficial Wound preparation: Irrigated copiously NS Skin layer closure: Dermabond Other: Tetanus UTD PD Medical Decision Making - ED course ED course: He has a laceration on his head that was shallow and closed with Dermabond. The mechanism of injury is unknown and incidentally on exam I note what looks like potentially a skin cancer on his nose. I left a voicemail for his POA to call back to discuss without immediate callback. That said I did mention it on his discharge instructions as well. I did speak with his POA at 11 AM and recommended follow-up for the nasal lesion and discussed current circumstances and she is appreciative and understanding. CT imaging of the head and C-spine was negative for acute findings with note of T1 and T2 compression fractures of unclear acuity. He is not tender there so doubt that they are acute. Departure - Departure Disposition: 01 Home, Self Care Clinical Impression: Fall Qualifiers: Encounter type: initial encounter Qualified Code(s): W19.XXXA - Unspecified fall, initial encounter Scalp laceration Qualifiers: Encounter type: initial encounter Qualified Code(s): S01.01XA - Laceration without foreign body of scalp, initial encounter Dementia Qualifiers: Dementia type: unspecified type Dementia severity: unspecified severity Dementia behavioral or psychological symptom: unspecified whether behavioral, psychotic, or mood disturbance or anxiety Qualified Code(s): F03.90 - Unspecified dementia, unspecified severity, without behavioral disturbance, psychotic disturbance, mood disturbance, and anxiety Condition: Good Record reviewed to determine appropriate education?: Yes Instructions: ED Laceration Facial Skin Glue Comments: Dez has the lesion on the right side of his nose. I do not know if this has been worked up or not but it does appear consistent with something like a squamous cell carcinoma and I would encourage dermatology follow-up for that.
[2024-01-22 10:22] VITALS: O2SAT 99
--- NOTE | 2024-01-22 11:17 | CT Report ---
PROCEDURE: Head WO INDICATIONS: head inj TECHNIQUE: Helical axial CT of the brain was obtained without contrast and reformatted in multiple p lanes. Radiation dose reduction was achieved using automated exposure control or adjustment of mA and /or kV according to patient size. COMPARISON: None FINDINGS: CSF spaces: Ventricles are appropriate in size and position. No hydrocephalus. Basal cisterns unre markable. Brain: No midline shift. No intracranial masses or hemorrhage. Mcfarland-white matter interface is norm al. Skull and face: Calvarium and skull base are unremarkable without suspicious lesion. Sinuses: Visualized sinuses and mastoids are clear. IMPRESSION: Moderate atrophy and white matter chronic ischemic change Reviewed by: Satinder Poon MD on 01/22/2024 10:16 AM JENNY Approved by: Satinder Poon MD on 01/22/2024 10:16 AM AKJESUS Station ID: [id number]
--- NOTE | 2024-01-22 11:21 | CT Report ---
PROCEDURE: Cervical Spine WO INDICATIONS: head inj TECHNIQUE: Helical axial CT of the cervical spine was obtained without contrast and reformatted in m ultiple planes. Radiation dose reduction was achieved utilizing automated exposure control or adjus tment of mA and/or kV according to patient size. COMPARISON: 07/31/2023 FINDINGS: Bones: Mid cervical disc space narrowing and hypertrophic facet joints are present. No evidence of ce rvical spine fracture or traumatic malalignment. In the thoracic spine T1 and T2 wedge-shaped compression fractures are new from the prior exam. No ev idence of retropulsed fracture fragment. Soft tissues: Prevertebral soft tissues are normal in thickness. No paravertebral hematomas. No ap ical pneumothoraces. IMPRESSION: T1 and T2 wedge-shaped compression fractures, uncertain age but nevertheless new from 07/31/2023 No evidence of fracture or traumatic malalignment in the cervical spine Reviewed by: Satinder Poon MD on 01/22/2024 10:20 AM JENNY Approved by: Satinder Poon MD on 01/22/2024 10:20 AM JENNY Station ID: [id number]
[2024-01-22 12:08] VITALS: BP 160/99
== END 2024-01-22 12:11 | disposition home or self-care (01) ==
LOC: ED 10:06
DX: S01.01XA Laceration without foreign body of scalp, initial encounter (principal); X58.XXXA Exposure to other specified factors, initial encounter; F03.90 Unspecified dementia, unspecified severity, without behavioral disturbance, psychotic disturbance, mood disturbance, and anxiety; I48.91 Unspecified atrial fibrillation; Z85.828 Personal history of other malignant neoplasm of skin
CPT/HCPCS: 12001; 99283; 99284

== ENCOUNTER 2024-01-22 12:13 | Outpatient (CLI) | payer MEDICARE | END 2024-01-22 23:59 | disposition home or self-care (01) | LOC: EMS 12:13 | PROVIDERS: ATTEND Emergency Medicine | DX: R41.0 Disorientation, unspecified (principal); S01.01XA Laceration without foreign body of scalp, initial encounter; W19.XXXA Unspecified fall, initial encounter; F03.90 Unspecified dementia, unspecified severity, without behavioral disturbance, psychotic disturbance, mood disturbance, and anxiety | CPT/HCPCS: A0425; A0429 ==

== ENCOUNTER 2024-03-12 08:49 | Outpatient (CLI) | payer MEDICARE | END 2024-03-12 23:59 | disposition critical access hospital (66) | LOC: EMS 08:49 | DX: R55 Syncope and collapse (principal); I48.91 Unspecified atrial fibrillation | CPT/HCPCS: A0425; A0429 ==

== ENCOUNTER 2024-03-12 09:02 | Emergency (ER) | payer MEDICARE ==
--- NOTE | 2024-03-12 09:15 | ED Physician Documentation ---
PD HPI SYNCOPE - Stated complaint Stated Complaint: AMS - History obtained from History obtained from: EMS, Caregiver - History of Present Illness Witnessed: Witnessed (he was sitting at dining room table and then slumbed and went to floor. LOC for seconds to about half minute per report to EMS.) Timing - onset: How many hours ago (1) Duration: Seconds, Minutes (less than 1) Preceding symptoms: Unknown (he did not have complaints to others while at dining table. Then just slumbed over.) Associated symptoms: No: Chest pain (he denies pains/symptoms upon awakening.), Nausea / vomiting, Abdominal pain Contributing factors: Other (EMS noted pt in atrial fib with rate initially about 130s on their arrival> BP adequate.). No: Recent med change, Decreased PO intake Injury occurred: Fell. No: Head injury, Neck injury Similar symptoms before: Has not had sx before, Other (history of intermittent atrial fib, not on DOACs, just ASA.) Recently seen: Emergency Dept (about 2 months ago related to a fall without notable injury. Was in NSR on that ED visit.) Review of Systems Unable to obtain: Dementia (no reported major illness, symptoms from caregivers at SNF to Medics.) PD PAST MEDICAL HISTORY - Past Medical History Cardiovascular: Atrial fibrillation Neuro: Dementia - Present Medications Home Medications: Ambulatory Orders Medication Instructions Recorded Confirmed Acetaminophen [Tylenol] 325 mg PO BID 09/28/23 03/12/24 diltiaZEM CD [Cardizem Cd] 180 mg PO DAILY #30 cap 09/30/23 03/12/24 - Allergies Allergies/Adverse Reactions: Allergies Allergy/AdvReac Type Severity Reaction Status Date / Time No Known Drug Allergies Allergy Verified 03/12/24 09:22 - Social History Does the pt smoke?: No Smoking Status: Unknown if ever smoked Does the pt drink ETOH?: No Does the pt have substance abuse?: No - Immunizations Immunizations are current?: Yes PD ED PE NORMAL - Vitals Vital signs reviewed: Yes - General General: No acute distress, Well developed/nourished, Other (alet and conversant. oriented to person, . does not know date/month, history of dementia. ) - HEENT HEENT: Atraumatic - Neck Neck: Supple, no meningeal sign, No bony TTP - Cardiac Cardiac: No murmur. No: RRR (irregular and rate 120-130s) - Respiratory Respiratory: No respiratory distress, Clear bilaterally - Abdomen Abdomen: Soft, Non tender - Derm Derm: Normal color, Warm and dry - Extremities Extremities: No edema, No calf tenderness / cord - Neuro Neuro: No motor deficit, No sensory deficit, Normal speech Results - Vitals Vitals: Oxygen O2 Source Room air - EKG (time done) 09:27 EKG releavant findings:: EKG personally interpreted by author of this note. Relevant findings are: Rate: Rate (enter#) (117) Rhythm: Atrial fibrillation Ischemia: Normal ST segments. No: ST elevation c/w ischemia, ST depression - Labs Labs: Laboratory Tests 03/12/24 03/12/24 09:24 09:24 WBC 8.8 RBC 4.16 L Hgb 13.1 L Hct 40.0 L MCV 96.2 H MCH 31.5 H MCHC 32.8 RDW 13.4 Plt Count 312 MPV 9.2 Neut # (Auto) 5.3 Lymph # (Auto) 2.4 [place] # (Auto) 1.0 Eos # (Auto) 0.1 Baso # (Auto) 0.0 Absolute Nucleated RBC 0.00 Nucleated RBC % 0.0 Sodium 140 Potassium 4.0 Chloride 103 Carbon Dioxide 29 Anion Gap 8.0 BUN 26 H Creatinine 1.1 Estimated GFR (MDRD) 64 L Glucose 95 Calcium 10.0 Magnesium 1.8 Total Bilirubin 1.2 H AST 12 ALT 10 Alkaline Phosphatase 114 Total Protein 7.1 Albumin 3.5 Globulin 3.6 Albumin/Globulin Ratio 1.0 Lipase 11 PD Medical Decision Making - ED course Complexity details: reviewed results, re-evaluated patient (he is feeling okay with alert/talkative, good BP, and HR is 86/consistent under 100 for awhile with dose of diltiazem. Still atrial fib on discharge. ), considered differential (syncope with brief duration without symptoms. Was noted fast atrial fib by EMS. with history of intermittent fib. With labs and no other apparent cause on testing, I might presume a traisnet dop in BP as trisitioned to fast atrial fib. ), other (listed contact is friend/POA. I reviewed the exam and results, with my thought that he likely had a drop in BP going into atrial fib, which he has history of paroxymsmally. Appears okay now and has good alertness and BP with rate controlled. No other findings on simple testing, c/w SOLAR DESIGNER/INSTALLER desire.) Departure - Departure Disposition: 01 Home, Self Care Clinical Impression: Syncope, Paroxysmal atrial fibrillation with rapid ventricular response Condition: Stable Record reviewed to determine appropriate education?: Yes Instructions: ED Afib Comments: Your blood pressure and alertness are normal here. Your heart rate was initially little bit faster by EMS and was in atrial fibrillation. This seems to be paroxysmal for you. I am assuming the onset of the A-fib occur red at the time that you fainted and had a transient drop in blood pressure causing the symptoms. Your heart rate is slowed down reasonably to a normal rate though it still in A-fib. Typically this will revert back to normal over the next day or 2 with the rate being slower. Continue usual medications. Check your blood pressure and heart rate twice daily over the next 5 days to see how it is ranging. Follow-up with your primary care to see if they want to increase your diltiazem dose if there seems to be a faster rate etc. At this point maintain the same dose. Return if needed. Forms: PCP List, Activity restrictions Discharge Date/Time: 03/12/24 12:00
[2024-03-12 09:28] LABS: BASOPHILS % (AUTO) 0.3 %; EOSINOPHILS # (AUTO) 0.1 10^3/uL (0.0-0.7); HGB - HEMOGLOBIN 13.1 g/dL (14.0-18.0); LYMPHOCYTES # (AUTO) 2.4 10^3/uL (1.5-3.5); LYMPHOCYTES % (AUTO) 27.3 %; MEAN CORPUSCULAR HEMOGLOBIN 31.5 pg (27.0-31.0); MEAN CORPUSCULAR HGB CONC 32.8 g/dL (32.0-36.0); MEAN CORPUSCULAR VOLUME 96.2 fL (80.0-94.0); MEAN PLATELET VOLUME 9.2 fL (7.4-11.4); MONOCYTES % (AUTO) 11.5 %; NEUTROPHILS # (AUTO) 5.3 10^3/uL (1.5-6.6); NEUTROPHILS % (AUTO) 59.6 %; PLT - PLATELET COUNT 312 10^3/uL (130-450); RED BLOOD COUNT 4.16 10^6/uL (4.70-6.10); RED CELL DISTRIBUTION WIDTH 13.4 % (12.0-15.0); WHITE BLOOD COUNT 8.8 x10^3/uL (4.8-10.8)
[2024-03-12 09:44] LABS: ALBUMIN 3.5 g/dL (3.2-5.5); BILIRUBIN,TOTAL 1.2 mg/dL (0.2-1.0); CREATININE 1.1 mg/dL (0.6-1.3); MAGNESIUM 1.8 mg/dL (1.7-2.3); TOTAL PROTEIN 7.1 g/dL (6.4-8.9)
[2024-03-12] MEDS: diltiaZEM INJ 5 MG/ML VIAL IVP STA (11:19)
[2024-03-12] MEDS: diltiaZEM CD 120 MG CAPSULE PO STA (11:30)
[2024-03-12 14:23] VITALS: BP 138/82; O2SAT 99
== END 2024-03-12 12:00 | disposition home or self-care (01) ==
LOC: EDUNIT# → ED 09:02
DX: I48.0 Paroxysmal atrial fibrillation (principal); R55 Syncope and collapse; F03.90 Unspecified dementia, unspecified severity, without behavioral disturbance, psychotic disturbance, mood disturbance, and anxiety; Z79.899 Other long term (current) drug therapy
CPT/HCPCS: 36415; 80053; 83690; 83735; 85025; 93005; 99284; A9270

== ENCOUNTER 2024-03-12 12:17 | Outpatient (CLI) | payer MEDICARE | END 2024-03-12 23:59 | disposition home or self-care (01) | LOC: EMS 12:17 | PROVIDERS: ATTEND Emergency Medicine | DX: R41.0 Disorientation, unspecified (principal); F03.90 Unspecified dementia, unspecified severity, without behavioral disturbance, psychotic disturbance, mood disturbance, and anxiety | CPT/HCPCS: A0425; A0428 ==